=== PATIENT | male | born 1975 | race Caucasian/White ===

== ENCOUNTER 2023-06-22 16:21 | Emergency (ER) | payer BC ==
[2023-06-22 17:30] LABS: Bilirubin Negative (Negative); Blood, Urine Negative (Negative); Clarity Clear (Clear); Glucose, Urine (Dipstick) Negative (Negative); Ketone, Urine Negative (Negative); Leukocyte Negative (Negative); Nitrite Negative (Negative); Protein, Urine (Dipstick) Negative (Neg-Trace); Urobilinogen 0.2 mg/dL (Less than 2)
[2023-06-22 17:35] LABS: Bacteria/HPF Rare-Few HPF (None Seen); CAUTI Indications for Culture Pelvic or flank pain; RBC/HPF 0-3 HPF (0-3); Squamous Epithelial 0-3 HPF (0-3); WBC/HPF None Seen HPF (0-3)
[2023-06-22 17:36] LABS: Urine Culture Reflex No No
== END 2023-06-22 17:51 | disposition home or self-care (01) ==
LOC: MADERS 16:21
DX: N50.811 Right testicular pain (principal)
CPT/HCPCS: 81001; 99284